=== PATIENT | female | born 1960 | race Caucasian/White ===

== ENCOUNTER → 2018-01-25 08:26 | Outpatient (CLI) | payer OTHER, SELFPAY ==
--- NOTE | 2018-01-25 08:27 | XR_ITS ---
XR DEXA axial skeleton HISTORY: ITS.REASON: screening ORDERING PHYSICIAN: Kwadwo Horner MD PATIENT AGE: 57 years COMPARISON: 07/06/2013 FINDINGS: The BMD measured at the Right femoral neck is 0.997 g/cm squared with a T score of -0.3. This is considered normal according to the World Health Organization criteria. Fracture risk is low. Treatment is advised. The L1 L4 density has a T score of -0.1. The density within the lumbar spine has increased by 4.8% and the density within the hips is decreased by 2% IMPRESSION: Normal bone density with low fracture risk. Suggest follow-up exam January 2020
--- NOTE | 2018-01-25 08:27 | MM_ITS ---
MM Dig screening mamm BI w/CAD ORDERING PHYSICIAN : Kwadwo Horner MD PATIENT AGE: 57 years GENDER: Female COMPARISON: May 2014, 2014, February 2013, bilateral mammogram January 2012 left breast INDICATION: ITS.REASON: screening case Prempro. Previous stereotactic biopsy left breast. Also reports benign excisional biopsy. Family history. Noncontributory TECHNIQUE: Standard CC and MLO images were obtained. R2 CAD reviewed. FINDINGS: Fairly dense heterogeneous breast bilaterally decreased sensitivity mammography. Densely may obscure underlying abnormalities. Also numerous scattered calcifications throughout both breast which appear to be due to adenosis and fibrocystic change a could mimic early significant calcifications.. Overall architecture appears stable with no dominant mass . RIGHT BREAST:innumerable scattered calcifications throughout the right breast appears similar to studies dating back to 2013. In fact there may be less evident calcifications today. Note the patient has had previous benign surgical excisional breast biopsies which likely accounts for the fairly stable subtle architectural changes at the deep lateral right breast LEFT BREAST :Previous 2011 percutaneous biopsy upper-outer quadrant left breast with metallic MicroMark from from such evident . There are scattered calcifications left breast both lateral and medial to mid point but I believe these are long-standing can even seen on the 2012 studies IMPRESSION: Stable mammogram. No new findings of significant concern Dense heterogeneous breast pattern, does decrease sensitivity of mammography but with no significant new findings identified Numerous scattered punctate calcifications throughout both breast again seen compatible with adenosis/fibrocystic change,. This Patient warrant ongoing annual follow-up BI-RADS Category: 2 Benign Finding(s) RECOMMENDED FOLLOW-UP: 1YR 1 YEAR FOLLOW-UP (A letter has been sent to the patient regarding results of the study.)
== END ==
PROVIDERS: Family Provider Family Medicine; PCP Nurse Practitioner; Visit Provider Obstetrics & Gynecology
DX: Z12.31 Encounter for screening mammogram for malignant neoplasm of breast (principal); Z13.820 Encounter for screening for osteoporosis; Z78.0 Asymptomatic menopausal state
CPT/HCPCS: 77067; 77080

== ENCOUNTER → 2018-01-25 09:51 | Outpatient (POV) | payer OTHER, SELFPAY | PROVIDERS: Family Provider Family Medicine; PCP Nurse Practitioner; Visit Provider Nurse Practitioner Acute Care | DX: Z00.00 Encounter for general adult medical examination without abnormal findings (principal) ==